=== PATIENT | female | born 1960 | race Caucasian/White ===

== ENCOUNTER 2016-06-21 17:01 | Outpatient (CLI) | payer OTHER | END 2016-06-21 17:02 | disposition home or self-care (01) | DX: L66.1 Lichen planopilaris (principal); B35.0 Tinea barbae and tinea capitis ==

== ENCOUNTER 2017-06-08 16:36 | Outpatient (CLI) | payer BC ==
[2017-06-08 16:53] LABS: BASOPHILS # (AUTO) 0.1 10^3/uL (0.0-0.1); EOSINOPHILS # (AUTO) 0.1 10^3/uL (0.0-0.7); EOSINOPHILS % (AUTO) 1.1 %; HGB - HEMOGLOBIN 12.8 g/dL (12.0-16.0); LYMPHOCYTES # (AUTO) 2.1 10^3/uL (1.5-3.5); LYMPHOCYTES % (AUTO) 26.2 %; MEAN CORPUSCULAR HEMOGLOBIN 28.6 pg (27.0-31.0); MEAN CORPUSCULAR VOLUME 89.4 fL (81.0-99.0); MONOCYTES # (AUTO) 0.5 10^3/uL (0.0-1.0); MONOCYTES % (AUTO) 6.4 %; NEUTROPHILS # (AUTO) 5.2 10^3/uL (1.5-6.6); NEUTROPHILS % (AUTO) 65.3 %; PLT - PLATELET COUNT 381 10^3/uL (130-450); RED BLOOD COUNT 4.46 10^6/uL (4.20-5.40)
[2017-06-08 17:13] LABS: % IRON SATURATION 16 % (20-50); IRON 64 ug/dL (28-170); TOTAL IRON BINDING CAPACITY 410 ug/dL (250-450); TRANSFERRIN 293 mg/dL (192-382)
[2017-06-08 17:18] LABS: T4 (THYROXINE) 7.54 ug/dL (6.09-12.23)
[2017-06-08 17:20] LABS: THYROID STIMULATING HORMONE 1.82 uIU/mL (0.34-5.60)
[2017-06-08 17:27] LABS: FERRITIN 24.9 ng/mL (11.0-306.8); TOTAL T3 1.34 ng/mL (0.87-1.78)
== END 2017-06-08 16:37 | disposition home or self-care (01) ==
LOC: LAB 16:36
PROVIDERS: ATTEND Physician Assistant Medical
DX: L66.1 Lichen planopilaris (principal)
CPT/HCPCS: 36415; 82728; 83540; 84436; 84443; 84466; 84480; 85025